=== PATIENT | male | born 1985 | race Caucasian/White ===

== ENCOUNTER 2019-04-06 13:45 | Emergency (ER) | payer BC ==
[~2019-04-06] VITALS: Ht 182.9 cm; Wt 90.7 kg
--- NOTE | 2019-04-06 13:50 | NUR ---
DIANNE 77 from home for new onset seizure, witnessed by , no trauma [id number], post-ictal. Patient a/ox2-3 with episodes of confusion. Breathing even and unlabored, ambulatory with steady gait. Needs attended, kept comfortable. Attached to the monitor, seizure precaution observed.
[2019-04-06 14:29] LABS: BASOPHILS # (AUTO) 0.1 /CMM (0.0-0.2); BASOPHILS % (AUTO) 0.9 % (0.0-2.0); EOSINOPHILS % (AUTO) 2.4 % (0.0-6.0); HEMATOCRIT 40 % (39-51); HEMOGLOBIN 13.2 g/dL (13.5-17.5); LYMPHOCYTES # (AUTO) 2.2 /CMM (0.8-4.8); LYMPHOCYTES % (AUTO) 27.5 % (20.0-44.0); MEAN CORPUSCULAR HGB CONC 33 g/dl (31.0-36.0); MEAN CORPUSCULAR VOLUME 83 fL (80-96); MONOCYTES # (AUTO) 0.7 /CMM (0.1-1.30); MONOCYTES % (AUTO) 8.6 % (2.0-12.0); NEUTROPHILS # (AUTO) 4.8 /CMM (1.8-8.9); NEUTROPHILS % (AUTO) 60.6 % (43.0-81.0); PLATELET COUNT (AUTO) 228 /CMM (150-450); RED BLOOD CELL COUNT(AUTO) 4.78 MIL/uL (4.5-6.0)
[2019-04-06] MEDS ORDERED: IV NS 0.9% 1,000 ML BAG IV ONE (14:30)
[2019-04-06 14:38] LABS: CARBON DIOXIDE 30 mmol/L (21-32); CHLORIDE 103 mmol/L (98-107); CREATININE 1.1 mg/dL (0.6-1.3); GLUCOSE 103 mg/dL (74-106); POTASSIUM 4.2 mmol/L (3.5-5.1); SODIUM SERUM 140 mmol/L (136-145); UREA NITROGEN, BLOOD 15 mg/dL (7-18)
[2019-04-06 14:44] LABS: ALANINE AMINOTRANSFERASE 31 U/L (12-78); ALBUMIN 3.8 g/dL (3.4-5.0); ALCOHOL, BLOOD < 3 mg/dL (0-0); ALKALINE PHOSPHATASE 73 U/L (46-116); ASPARTATE AMINOTRANSFERASE 36 U/L (15-37); BILIRUBIN,DIRECT 0.1 mg/dL (0.0-0.2); BILIRUBIN,TOTAL 0.3 mg/dL (0.2-1.0)
--- NOTE | 2019-04-06 15:20 | NUR ---
CALLED RAYA TO HAVE ER DR SPEAK TO RADIOLOGIST.
[2019-04-06 15:38] LABS: MAGNESIUM 1.8 mg/dL (1.8-2.4)
--- NOTE | 2019-04-06 15:55 | NUR ---
AT BEDSIDE. PATIENT A/OX4, IN NAD. DENIES PAIN AT THIST SACHA. WILL MONITOR. NO EPISODE OF SEIZURE NOTED.
--- NOTE | 2019-04-06 16:17 | NUR ---
Patient ambulatory with a steady gait. IV removed. Catheter intact and site benign. Pressure and 4x4 applied to site. No bleeding noted.Patient discharged to home in stable condition. Written and verbal after care instructions given. Patient verbalizes understanding of instruction.
[2019-04-06 16:18] VITALS: BP 105/62
== END 2019-04-06 16:18 | disposition home or self-care (01) ==
LOC: ER 13:50
DX: R56.9 Unspecified convulsions (principal); R41.0 Disorientation, unspecified
CPT/HCPCS: 36415; 70450; 71045; 80048; 80076; 80305; 80307; 83605; 83735; 84484; 85025; 85730; 93005; 96360; 99284; J7030; G0480